=== PATIENT | male | born 1980 | race Caucasian/White ===

== ENCOUNTER 2016-03-18 09:56 | Emergency (ER) | payer SELFPAY ==
[2016-03-18 10:13] VITALS: RESP 18; TEMP 98.6
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
[2016-03-18 11:00] VITALS: BP 118/64; PULSE 103; O2SAT 36
--- NOTE | 2016-03-18 11:09 | DX ---
Right ankle, three views. History: trauma, pain Findings: Ankle mortice is intact. No fracture or joint effusion. Soft tissues appear unremarkable . Impression: Negative right ankle series.
== END 2016-03-18 11:00 | disposition home or self-care (01) ==
LOC: EDUNIT#
DX: S93.401A Sprain of unspecified ligament of right ankle, initial encounter (principal); T75.4XXA Electrocution, initial encounter; W17.89XA Other fall from one level to another, initial encounter; Y93.39 Activity, other involving climbing, rappelling and jumping off